=== PATIENT | male | born 1940 | race Caucasian/White ===

== ENCOUNTER 2017-02-23 10:01 | Inpatient (IN) ==
[2017-02-23] MEDS ORDERED: ALBUTEROL/IPRATROPIUM 3 ML NEB RESP TX PRN (11:21)
[2017-02-23] MEDS ORDERED: LACTULOSE 20 GM/30 ML UDCUP PO PRN (11:21)
--- NOTE | 2017-02-23 11:37 | Pulmonology History & Physical ---
History of Present Illness Chief complaint: hemoptysis acute RML pneumonia poss. LLL infiltrate vs L pleural effusion History of present illness: RADHA Villarreal acting as scribe for Dr. Sascha Carrillo. Mr. Tomas is a 76 year old /White male who was admitted today from the clinic for acute RML pneumonia, hemoptysis, possible LLL pneumonia vs L pleural effusion, increased edema, CKD, paroxysmal afib, and outpatient tx failure. He was seen today in the clinic along with his with complaints of productive cough and "cold" symptoms that have been present for a little over 1 week now, but patient states on Wednesday02/21/17 he began coughing up bright red blood. Due to his anticoagulation with Coumadin he went to see his primary care provider in [place], [place] yesterday and had his INR checked this was 2.2. They did not do a CXR at this time but he was placed on Doxycycline and given a ProAir inhaler. He has been coughing up yellow/green thick sputum for about 1 week now, Wednesday it was bright red, now it is more of an orange/old blood type color but it remains thick. He states he is able to cough it up easily but still feels like he is congested. Also has had increased shortness of breath and worsening wheezing especially at night. He was given a ProAir inhaler by his PCP yesterday but has not used this yet as he was waiting to ask if this was safe for use or not. Has had increased lower extremity edema for about 2 weeks now, he does have chronic kidney disease and is followed by an MD in [place] for this and his blood pressure. He has had low blood pressure of late which he states this has been since his hypertension MD placed him back on Cozaar 50mg daily because his "kidneys had gotten worse", so he stopped the Cozaar 3 days ago on his own. BP in the office today is still 98/62. He has Lasix on his home med list but he takes this on slight occasion but not frequently due to his kidneys. He has not checked his temperature at home but has noted chills. Due to the severity of his symptoms, past medical history, and failure of outpatient treatment by his PCP along with infiltrate on his CXR decision was made to admit to inpatient for further evaluation and treatment. ROS is otherwise noncontributory. He denies solid dysphagia, reflux, syncope, near syncope, cardiac angina, palpitations, or TIAs. ALLERGIES: NO KNOWN DRUG ALLERGIES Home Medications: Doxycycline 100mg capsule BID, ASA E.C 81mg daily, Ativan 1mg daily, Co-Q 10 daily, Imdur 120mg daily, Lasix 20mg daily PRN, Lipitor 80mg daily, Nitroglycerin sublingual 0.4mg as directed, Prilosec OTC 20mg BID, Toprol XL 50mg 2 tablets daily and 1.5 tablets at bedtime, Vitamin C 1,000mg BID , and Coumadin 4mg daily. Past Medical History: In January 2014 fell and fractured three ribs on his left side. Probable bronchiectasis with chronic sputum production. History of left total knee replacement. Cardiac pacemaker which was placed by Dr. Forbes in [place] originally, then in 2011 cardiac pacemaker placed by Dr. Villa in [place], [place]. Atrial fibrillation last episode was about 1 month ago, followed by Dr. Forbes in [place], [place] from cardiology standpoint. History of angioplasty and 4 cardiac stents. Hypertension followed by Dr. Novoa in [place], [place], hyperlipidemia, GERD with a small hiatal hernia. LOUISE followed by Dr. Gordillo. His primary care provider is Dr. Kole Farrell in [place], [place]. Previously followed by Dr. [facility] in [place], [place] but he has retired. Past Surgical History: LHC and pacemaker placements as above, left knee replacement, gastric sleeve surgery. Social History: . History of smoking 3 packs a day for 20 years but stopped smoking in the late 1960s. Family History: Positive for diabetes, heart disease, myocardial infarction, and sudden . [place] [facility] [place]. Heart size is top normal. Pulmonary arteries, hilum, and mediastinum are within normal limits, cardiac pacemaker and pacer wires are present. There is an infiltrate noted in the RML area with density appearing at the left costophrenic angle with some air space present could be acute infiltrate vs. pleural effusion. We will repeat his XR in the morning if unable to determine possible CT chest. Mild kyphosis of the dorsal spine. Labs have been reviewed CBC was done at [facility] WBC 6,200 with 50.9% segs and 33% lymphs, RBC 3.54 H&H 12.8/36.5 with Elevated indices at MCV 103.1 and MCH 36.2. Platelets 132,000 RDW normal at 14%. EKG is pending. Allergies Allergy/AdvReac Type Severity Reaction Status Date / Time tamsulosin [From Flomax] Allergy Intermediate Palpitation Verified 02/23/17 15: 46 s Exam (Pulmonay) H&P - Constitutional Vitals: Ht 68in wt. 227# see below for other vitals. Exam: Psych. Oriented x3. Pleasant mood, acute and chronically ill appearing. HEENT: Pupils, irises, sclera, conjunctiva, eyelids are normal. Face is symmetrical. Nares are normal with no evidence of epistaxis. NECK: Symmetrical, no masses, slightly kyphotic. Thyroid was not palpated. Lymphatic: No submandibular, cervical, or supraclavicular adenopathy. Chest: Chest is symmetrical and slightly kyphotic. Significant amount of coarse rales/rhonchi with loose large airway congestion noted anteriorly in the large airway/tracheal area there is also a faint high pitched stridor heard on forced expiration in the upper airway. Posteriorly there are expiratory coarse rales/ rhonchi throughout worse in the right basilar areas. No wheezes noted posteriorly. Heart: Regular rate and rhythm, grade I/ systolic ejection murmur and the LUSB without radiation. No gallops. Abdomen: Abdominal obesity is present, no tenderness, no appreciable organomegaly. /Rectal: deferred Musculoskeletal: Mild loss of curvature of the cervical, thoracic, and lumbar spine. Extremities: No clubbing. There is at least 1-2+ pitting edema bilaterally at the pretibial. At time of exam patient has on socks that have left an indented ring about midway between the knee and ankle. Above this there is at least 2-3+ pitting edema bilaterally extending from this point up to the tibial plateus bilaterally. There is no redness or calf pain. Arterial Exam: Carotids normal with good upstroke and no bruits. Upper extremities are normal. Lower extremity pulses could not be palpated due to edema. Venous exam: Venous exam of the neck and upper extremities is normal. Lower extremities show acute on chronic venous stasis changes. Skin: No cancerous or infectious lesions of the exposed examined skin. Neurological: Cranial nerves are intact. Long tract motor function is intact. Sensory exam was not done. The remainder of the physical exam is noncontributory. Impression: #1 Acute RML infiltrate despite outpatient treatment #2 Possible acute LLL infiltrate vs. small left pleural effusion, due to acute RML infiltrate and signs and symptoms we will treat this as an acute infiltrate until blood culture and sputum results are obtained. #3 Hemoptysis, patient also on predatory animal exterminator anticoagulation #4 Increased lower extremity edema with history of chronic kidney disease and CHF #5 Increase shortness of breath and wheezing #6 Anemia with increased indices, history of b12 deficiency #7 LOUISE #8 Atrial fibrillation #9 See past history. Plan: #1 Admit to inpatient for further evaluation and treatment #2 Blood cx x3, sputum for gram stain c&s, levaquin to be dosed by pharmacy, cleocin 300mg q6h, labs and radiology studies as ordered. #3 ID and continue home meds as ordered. #4 Inhalation treatment with duonebs, acapella, mucinex, and tessalon perles PRN for cough. #5 See orders.
[2017-02-23] MEDS: ALBUTEROL/IPRATROPIUM 3 ML NEB RESP TX SCH ×2 (14:53→19:38)
--- NOTE | 2017-02-23 15:06 | EKG Report ---
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
[2017-02-23] MEDS: LEVOFLOXACIN INJ 250 MG in PREMIX 1 EACH IV SCH (15:42)
[2017-02-23] MEDS ORDERED: BENZONATATE 100 MG CAPSULE PO PRN (16:05)
[2017-02-23 16:35] LABS: INR 2.3
[2017-02-23 16:42] LABS: PT Patient Result 25.9 SECS
[2017-02-23 16:58] LABS: Albumin 3.5 G/DL (3.4-5.0); Bilirubin,Total 0.6 MG/DL (0.2-1.0); Calcium 8.2 MG/DL (8.5-10.1); Magnesium 2.2 MG/DL (1.8-2.4); Osmolality,Calculated 301.3 MOS/KG (273-304); Potassium 4.3 MMOL/L (3.5-5.1); Thyroid Stimulating Hormone 1.26 uIU/ml (0.358-3.74); Total Protein 6.5 G/DL (6.4-8.3)
--- NOTE | 2017-02-23 17:09 | Ultrasound Report ---
Exam: Bilateral lower extremity venous Doppler ultrasound Comparison: 06/20/2008 Clinical history: Leg edema Technique: Duplex scan of the lower extremity veins using B-mode/grayscale scaled imaging and Doppler spectral analysis and color flow. Findings: Major venous structures of the lower extremities demonstrate a normal course and caliber. Normal color-flow study and spectral analysis. There is normal compression and augmentation of bilateral common femoral, superficial femoral and popliteal veins. The proximal bilateral greater saphenous veins appear to be patent. Impression: No evidence to suggest deep venous thrombosis within either lower extremity. Ultrasound images were captured and stored. PROCEDURE INTERPRETED AT [facility] DEPARTMENT OF RADIOLOGY Final Report Signed by: Dr. Connie Garcia
[2017-02-23 17:12] LABS: Folate > 24.0 NG/ML (5.4-24.0); Vitamin B12 839 PG/ML (211-911)
[2017-02-23] MEDS: CLINDAMYCIN INJ 300 MG in PREMIX 1 EACH IV SCH ×2 (17:43→21:17)
[2017-02-23 21:07] LABS: Apearance,Urine Slightly Hazy (Clear); Bacteria,Urine Occasional /HPF (Few); Bilirubin,Urine Negative (Negative); Blood, Urine Negative (Negative); Glucose,Urine (UA) Negative (Negative); Ketones,Urine Negative (Negative); Mucus,Urine Occasional /LPF (Occasional); Nitrite,Urine Negative (Negative); Protein,Urine 30 MG/DL; RBC,Urine <1 /HPF (0-4); Squamous Epithelial Cell,Urine Occasional /HPF (0-10); Urine Color Yellow (Yellow); Urine Specific Gravity 1.017 (1.001-1.035); Urine Urobilinogen < 2.0 EU/DL (0.2-1.0); WBC,Urine 2 /HPF (0-6)
[2017-02-24] MEDS: CLINDAMYCIN INJ 300 MG in PREMIX 1 EACH IV SCH ×4 (05:29→22:02)
[2017-02-24 05:49] LABS: Basophils % 0.8 % (0.0-0.8); Eosinophils # 0.3 10*3/uL (0.0-0.87); Eosinophils % 5.5 % (0.00-10.9); Hematocrit 34.6 VOL% (42.0-52.0); Hemoglobin 11.5 GM/DL (14.0-18.0); Immature Granulocytes % 0.2 %; Immature Granulocytes Absolute 0.01 #; Lymphocytes # 1.7 10*3/uL (1.4-4.0); Lymphocytes % 34.7 % (21.2-54.2); Mean Corpuscular HGB Conc 33.2 GM/DL (32-36); Mean Corpuscular Hemoglobin 34 PG (27-34); Mean Platelet Volume 12.4 FL (9.6-12.0); Monocytes # 0.5 10*3/uL (0.11-0.8); Monocytes % 9.4 % (1.7-12.7); Neutrophils # 2.4 10*3/uL (1.4-7.4); Neutrophils % 49.4 % (38.7-73.9); Platelet Count 116 T/CUMM (130-400); Red Blood Count 3.36 MC/CUMM (3.8-5.5); Red Cell Distribution Width 14.6 % (9.3-17.3); White Blood Count 4.9 T/CUMM (4-12)
[2017-02-24 06:01] LABS: INR 2.4
[2017-02-24 06:04] LABS: PT Patient Result 26.9 SECS
[2017-02-24 06:14] LABS: Magnesium 2.2 MG/DL (1.8-2.4); Osmolality,Calculated 297.4 MOS/KG (273-304)
[2017-02-24] MEDS: ALBUTEROL/IPRATROPIUM 3 ML NEB RESP TX SCH ×4 (07:07→20:34)
--- NOTE | 2017-02-24 07:43 | XRay Report ---
XR chest 2V Indication: Shortness of breath Comparison: 03 June 2013 Findings: The heart and mediastinum are normal in size and configuration. Pacemaker device is unchanged in position. The pulmonary vascularity is normal in caliber. Lung volumes are increased with prominent bronchial markings. No lung infiltrates, effusions, pneumothorax or other abnormality is demonstrated. Impression: Chronic lung changes. No acute process or significant change. PROCEDURE INTERPRETED AT [facility] DEPARTMENT OF RADIOLOGY Final Report Signed by: Dr. Manoj Phillips
[2017-02-24] MEDS: PANTOPRAZOLE 40 MG TABLET PO SCH (08:24)
[2017-02-24] MEDS: ISOSORBIDE MONONITRATE 30 MG TABLET PO SCH (10:53)
[2017-02-24] MEDS: POTASSIUM CHLORIDE 10 MEQ TABLET PO SCH (10:53)
[2017-02-24] MEDS: METOPROLOL SUCCINATE XL 50 MG TABLET PO SCH (10:53)
[2017-02-24] MEDS: ASPIRIN CHEW 81 MG TABLET PO SCH (10:53)
[2017-02-24] MEDS: FUROSEMIDE 20 MG/2 ML VIAL IV SCH ×2 (10:53→15:40)
--- NOTE | 2017-02-24 11:09 | Pulmonology Progress Note ---
Pulmonary - PN: Subj Interval history: RADHA Villarreal acting as scribe for Dr. Sascha Carrillo. Mr. Tomas is a 76 year old /White male who was admitted 02/23/17 from the clinic for acute RML pneumonia, hemoptysis, possible LLL pneumonia vs L pleural effusion, increased edema, CKD, paroxysmal afib, and outpatient tx failure. 02/24/17 he was seen today along with ÁNGELA Hobbs, the patient's and two sons were also in the room. Patient states that he continues to cough up sputum that is blood tinged but that he feels better this morning. His legs have gone down significantly in size since yesterday with elevation and compression hose. He has had further labs, imaging studies since admission these have been reviewed. Doppler venograms were negative for evidence of DVT. EKG was without acute changes for his baseline. CXR was repeated today which showed that this was more of a right lower lung infiltrate mostly posterior rather than right middle lung, also small amounts of fluid noted at both costophrenic angles along with a small infiltrate noted in the left lower lung. We discussed these findings with the patient and family and they verbalized understanding and that he would likely need fiberoptic bronchoscopy during this hospitalization to evaluate the cause of this hemoptysis further but we would wait until he is stable to do this. He had no complaints today. Medications have been reviewed. We have continued his home medications. Labs have been reviewed. 02/24/17 WBC 4,900 with 49.4% segs; H&H 11.5/34.6 with elevated MCV at 103; platelets 116,000; INR 2.4; Sodium 147, potassium 4.0; creatinine 1.2 BUN 31; calcium 8.0; AST 82 ALT 119 ALP 199; BNP 1063; b12 839; folate >24.0; Free T4 1.17 with TSH of 1.260. CXR has been reviewed 02/24/17 as above right lower lung infiltrate mostly posterior rather than right middle lung, also small amounts of fluid noted at both costophrenic angles along with a small infiltrate noted in the left lower lung. EKG has been reviewed as above. Exam (Progress Note) - Constitutional Vitals: Period Temp Pulse Resp BP Sys/Olivarez Pulse Ox Last 24 Hr 97.3 F-97.8 F 68-88 18-22 108-139/66-90 94-100 Exam: Psych. Oriented x3. Pleasant and cooperative patient. NECK: Symmetrical, no masses, slightly kyphotic. Thyroid was not palpated. Chest: Significant amount of coarse rales/rhonchi noted throughout on expiration most prominent in the large airways with loose large airway congestion. Heart: Regular rate and rhythm, grade I/ systolic ejection murmur and the LUSB without radiation. No gallops. Abdomen: Abdominal obesity is present, no tenderness, no appreciable organomegaly. Extremities: No clubbing or edema, BOUCHRA hose in place bilaterally. Neurological: Cranial nerves are intact. Long tract motor function is intact. Sensory exam was not done. The remainder of the physical exam is noncontributory. Plan: Obtain echocardiogram today for CHF elevated BNP, continue home meds with daily INR, add Lasix 20mg IVP BID with KCL 10meQ daily PO for diuresis monitor daily BMP due to CKD, add SoluMedrol 20mg IVP daily, obtain liver u/s for elevated liver function tests, plan for FOB when patient is stable to further evaluate hemoptysis. Continue current abx as ordered and inhalation therapy as ordered. Results - Labs CBC & BMP: 02/24/17 05:14 02/24/17 05:14 Lab Results: I have reviewed the past 24 hour labs
[2017-02-24] MEDS: LEVOFLOXACIN INJ 250 MG in PREMIX 1 EACH IV SCH (15:40)
--- NOTE | 2017-02-24 15:48 | Ultrasound Report ---
Exam: US liver Date: 02/24/2017 11:15 AM Comparison: None Indication: Elevated liver function tests Technique:[Multiple transabdominal real-time scans were obtained of the right upper quadrant.] Color-flow scans obtained. Ultrasound images were captured and stored. Findings: No definite gallbladder pathology identified. CBD is normal in size measuring 4 mm. The liver is normal in size with no masses. The right kidney, pancreas, and abdominal aorta, and aortic bifurcation are obscured by bowel gas. Color flow documented in the IVC. Small right pleural effusion. Impression: No definite gallbladder pathology identified. Bowel gas limits evaluation of the right upper quadrant as above noted. Small right pleural effusion. PROCEDURE INTERPRETED AT [facility] DEPARTMENT OF RADIOLOGY Final Report Signed by: Dr. Connie Garcia
[2017-02-24] MEDS: METOPROLOL SUCCINATE XL 25 MG TABLET PO SCH (18:10)
[2017-02-24] MEDS: ATORVASTATIN 40 MG TABLET PO SCH (18:10)
[2017-02-24] MEDS: WARFARIN 4 MG TABLET PO SCH (18:10)
[2017-02-24] MEDS: LORazepam 1 MG TABLET PO SCH (18:11)
--- NOTE | 2017-02-24 18:28 | ECHO Report ---
Elgin Tomas Exam Date: 02/24/2017 11:06 Referring Physician: Technologist: Susan Mackenzie RDCS Age: 76 Ht (in): 68 Wt (lb): 224 Gender: M Exam Location: [facility] Echo Indications: Acute RML pneumonia, Hemoptysis, Edema, unspecified, Chronic kidney disease, unspecified, Presence of cardiac pacemaker, Atrial fibrillation, LOUISE BP: 116 / 79 HR: 78 Rhythm: Atrial fibrillation/pacemaker Technical Quality: IMPRESSIONS Technically adequate study 3+ left atrial enlargement; probably 2+ right ventricular enlargement Borderline normal LV systolic function with ejection fraction estimated at 50 to 55%, without segmental wall motion abnormality Aortic sclerosis without stenosis Mitral annular calcification 1+ mitral and tricuspid regurgitation 1-2+ TR with RV systolic pressure estimated to be 58 mmHg plus RAP (suggests at least moderate pulmonary hypertension) Probable pacing wire and right heart noted MEASUREMENTS (Male / Female) Normal Values 2D ECHO LV Diastolic Diameter PLAX 5.7 cm 4.2 - 5.9 / 3.9 - 5.3 cm LV Systolic Diameter PLAX 3.7 cm LV Fractional Shortening PLAX 34.4 % IVS Diastolic Thickness 0.9 cm 0.6 - 1.0 / 0.6 - 0.9 cm LVPW Diastolic Thickness 0.9 cm 0.6 - 1.0 / 0.6 - 0.9 cm RV Internal Dim ED PLAX 3.9 cm Aortic Root Diameter 3.8 cm LA Systolic Diameter LX 5.5 cm 3.0 - 4.0 / 2.7 - 3.8 cm DOPPLER TR Peak Velocity 381.0 cm/s TR Peak Gradient 58.1 mmHg FINDINGS Left Ventricle Normal left ventricular cavity size. Normal left ventricular wall thickness. Left ventricular ejection fraction is estimated at 50 %. Right Ventricle Normal right ventricular size. Catheter/pacemaker wire visualized in the right ventricle. Right Atrium The right atrium is mildly enlarged. Catheter/pacemaker wire in the right atrial cavity. Left Atrium Moderately increased left atrial size. Mitral Valve Mild mitral annular and leaflet calcification with mild mitral regurgitation. Aortic Valve Aortic valve sclerosis without stenosis or regurgitation. Tricuspid Valve Morphologically normal tricuspid valve. Mild tricuspid valve regurgitation. Tricuspid regurgitation velocities suggest a PAP of 68 mmHg. Pulmonic Valve Morphologically normal pulmonic valve. Mild pulmonary valve regurgitation. Pericardium Normal pericardium without effusion. Aorta Normal ascending aorta dimension. Klaus Azul (Electronically Signed) Final Date: 24 February 2017 18:27
[2017-02-25] MEDS: CLINDAMYCIN INJ 300 MG in PREMIX 1 EACH IV SCH ×4 (04:23→21:02)
[2017-02-25 06:01] LABS: Basophils % 0.9 % (0.0-0.8); Eosinophils # 0.4 10*3/uL (0.0-0.87); Eosinophils % 8.3 % (0.00-10.9); Hematocrit 34.5 VOL% (42.0-52.0); Hemoglobin 11.5 GM/DL (14.0-18.0); Immature Granulocytes % 0.2 %; Immature Granulocytes Absolute 0.01 #; Lymphocytes # 1.4 10*3/uL (1.4-4.0); Lymphocytes % 31.1 % (21.2-54.2); Mean Corpuscular HGB Conc 33.3 GM/DL (32-36); Mean Corpuscular Hemoglobin 35 PG (27-34); Mean Corpuscular Volume 103.6 FL (87-102); Mean Platelet Volume 12.1 FL (9.6-12.0); Monocytes # 0.6 10*3/uL (0.11-0.8); Monocytes % 12.1 % (1.7-12.7); Neutrophils # 2.2 10*3/uL (1.4-7.4); Neutrophils % 47.4 % (38.7-73.9); Platelet Count 120 T/CUMM (130-400); Red Blood Count 3.33 MC/CUMM (3.8-5.5); Red Cell Distribution Width 14.3 % (9.3-17.3); White Blood Count 4.6 T/CUMM (4-12)
[2017-02-25 06:05] LABS: INR 2.2
[2017-02-25 06:11] LABS: PT Patient Result 24.8 SECS
[2017-02-25 06:14] LABS: Calcium 8.6 MG/DL (8.5-10.1); Magnesium 2.2 MG/DL (1.8-2.4); Osmolality,Calculated 295.6 MOS/KG (273-304); Potassium 3.7 MMOL/L (3.5-5.1)
[2017-02-25] MEDS: ALBUTEROL/IPRATROPIUM 3 ML NEB RESP TX SCH ×4 (06:54→19:39)
[2017-02-25] MEDS: PANTOPRAZOLE 40 MG TABLET PO SCH (08:03)
[2017-02-25] MEDS: METOPROLOL SUCCINATE XL 50 MG TABLET PO SCH (08:03)
[2017-02-25] MEDS: ASPIRIN CHEW 81 MG TABLET PO SCH (08:03)
[2017-02-25] MEDS: methylPREDNISolone SOD SUC 40 MG/1 ML VIAL IV SCH (08:03)
[2017-02-25] MEDS: POTASSIUM CHLORIDE 10 MEQ TABLET PO SCH (08:03)
[2017-02-25] MEDS: ISOSORBIDE MONONITRATE 30 MG TABLET PO SCH (08:03)
[2017-02-25] MEDS: FUROSEMIDE 20 MG/2 ML VIAL IV SCH ×2 (08:03→17:00)
--- NOTE | 2017-02-25 08:40 | XRay Report ---
XR chest 2V Indication: Pneumonia, congestive heart failure Comparison: 24 February 2017 Findings: The heart and mediastinum are normal in size and configuration. Pacemaker device is unchanged in position. The pulmonary vascularity is normal in caliber. No lung infiltrates, effusions, pneumothorax or other abnormality is demonstrated. Impression: No acute cardiopulmonary disease. PROCEDURE INTERPRETED AT [facility] DEPARTMENT OF RADIOLOGY Final Report Signed by: Dr. Manoj Phillips
--- NOTE | 2017-02-25 11:26 | Pulmonology Progress Note ---
Pulmonary - PN: Subj Interval history: Dirk Nur, ANP-BC, GNP-BC, acting as scribe for Dr. Sascha Carrillo Mr. Tomas is a 76 year old /White male who was admitted 02/23/17 from [facility] for acute RML pneumonia, hemoptysis, possible LLL pneumonia vs L pleural effusion, increased edema, CKD, paroxysmal afib, and outpatient tx failure. 02/24/17 he was seen today along with ÁNGELA Hobbs, the patient's and two sons were also in the room. Patient states that he continues to cough up sputum that is blood tinged but that he feels better this morning. His legs have gone down significantly in size since yesterday with elevation and compression hose. He has had further labs, imaging studies since admission these have been reviewed. Doppler venograms were negative for evidence of DVT. EKG was without acute changes for his baseline. CXR was repeated today which showed that this was more of a right lower lung infiltrate mostly posterior rather than right middle lung, also small amounts of fluid noted at both costophrenic angles along with a small infiltrate noted in the left lower lung. We discussed these findings with the patient and family and they verbalized understanding and that he would likely need fiberoptic bronchoscopy during this hospitalization to evaluate the cause of this hemoptysis further but we would wait until he is stable to do this. He had no complaints today. 02/25/17. The patient was seen today along with his . His breathing has improved. He continues to have some hemoptysis. He will need FOB at some point, but he is not ready from a medical standpoint yet. Medications have been reviewed. We made no changes today. Labs have been reviewed. Exam (Progress Note) - Constitutional Vitals: Period Temp Pulse Resp BP Sys/Olivarez Pulse Ox Last 24 Hr 97.3 F-98.6 F 79-96 18-25 103-140/66-80 89-99 Exam: Chest with prolonged expiration, but less wheeze Heart no gallop Abd is nontender and nondistended; BS positive x 4 Ext with nothing to suggest acute DVT Psych oriented x 3 Neuro long tract motor function is intact Plan: Continue present treatments and medications. See orders. Results - Labs CBC & BMP: 02/26/17 04:27 02/26/17 04:27
[2017-02-25] MEDS: LEVOFLOXACIN INJ 250 MG in PREMIX 1 EACH IV SCH (14:45)
[2017-02-25] MEDS: amLODIPine 5 MG TABLET PO SCH (14:45)
[2017-02-25] MEDS: WARFARIN 4 MG TABLET PO SCH (17:00)
[2017-02-25] MEDS: METOPROLOL SUCCINATE XL 25 MG TABLET PO SCH (18:55)
[2017-02-25] MEDS: LORazepam 1 MG TABLET PO SCH (18:55)
[2017-02-25] MEDS: ATORVASTATIN 40 MG TABLET PO SCH (18:55)
[2017-02-26] MEDS: CLINDAMYCIN INJ 300 MG in PREMIX 1 EACH IV SCH ×4 (04:03→21:03)
[2017-02-26] MEDS: ALBUTEROL/IPRATROPIUM 3 ML NEB RESP TX SCH ×4 (07:05→20:52)
[2017-02-26 07:14] LABS: Basophils % 0.3 % (0.0-0.8); Eosinophils # 0.1 10*3/uL (0.0-0.87); Eosinophils % 1.3 % (0.00-10.9); Hematocrit 35.2 VOL% (42.0-52.0); Hemoglobin 11.6 GM/DL (14.0-18.0); Immature Granulocytes Absolute 0.06 #; Lymphocytes # 1.6 10*3/uL (1.4-4.0); Lymphocytes % 26.2 % (21.2-54.2); Mean Corpuscular Hemoglobin 34 PG (27-34); Mean Corpuscular Volume 103.5 FL (87-102); Mean Platelet Volume 12.3 FL (9.6-12.0); Monocytes # 0.6 10*3/uL (0.11-0.8); Monocytes % 10.1 % (1.7-12.7); Neutrophils # 3.7 10*3/uL (1.4-7.4); Neutrophils % 61.1 % (38.7-73.9); Platelet Count 138 T/CUMM (130-400); Red Cell Distribution Width 14.6 % (9.3-17.3); White Blood Count 6.1 T/CUMM (4-12)
[2017-02-26 07:23] LABS: INR 2.5; PT Patient Result 28.1 SECS
[2017-02-26 07:58] LABS: Calcium 8.1 MG/DL (8.5-10.1); Magnesium 2.2 MG/DL (1.8-2.4); Osmolality,Calculated 297.7 MOS/KG (273-304); Potassium 4.2 MMOL/L (3.5-5.1)
[2017-02-26] MEDS: amLODIPine 5 MG TABLET PO SCH (08:35)
[2017-02-26] MEDS: FUROSEMIDE 20 MG/2 ML VIAL IV SCH (08:36)
[2017-02-26] MEDS: PANTOPRAZOLE 40 MG TABLET PO SCH (08:36)
[2017-02-26] MEDS: ASPIRIN CHEW 81 MG TABLET PO SCH (08:36)
[2017-02-26] MEDS: ISOSORBIDE MONONITRATE 30 MG TABLET PO SCH (08:36)
[2017-02-26] MEDS: POTASSIUM CHLORIDE 10 MEQ TABLET PO SCH (08:36)
[2017-02-26] MEDS: METOPROLOL SUCCINATE XL 50 MG TABLET PO SCH (08:36)
[2017-02-26] MEDS: methylPREDNISolone SOD SUC 40 MG/1 ML VIAL IV SCH (08:36)
--- NOTE | 2017-02-26 11:50 | Pulmonology Progress Note ---
Pulmonary - PN: Subj Interval history: Dirk Nur, ANP-BC, GNP-BC, acting as scribe for Dr. Sascha Carrillo Mr. Tomas is a 76 year old /White male who was admitted 02/23/17 from [facility] for acute RML pneumonia, hemoptysis, possible LLL pneumonia vs L pleural effusion, increased edema, CKD, paroxysmal afib, and outpatient tx failure. 02/24/17 he was seen today along with ÁNGELA Hobbs, the patient's and two sons were also in the room. Patient states that he continues to cough up sputum that is blood tinged but that he feels better this morning. His legs have gone down significantly in size since yesterday with elevation and compression hose. He has had further labs, imaging studies since admission these have been reviewed. Doppler venograms were negative for evidence of DVT. EKG was without acute changes for his baseline. CXR was repeated today which showed that this was more of a right lower lung infiltrate mostly posterior rather than right middle lung, also small amounts of fluid noted at both costophrenic angles along with a small infiltrate noted in the left lower lung. We discussed these findings with the patient and family and they verbalized understanding and that he would likely need fiberoptic bronchoscopy during this hospitalization to evaluate the cause of this hemoptysis further but we would wait until he is stable to do this. He had no complaints today. 02/25/17. The patient was seen today along with his . His breathing has improved. He continues to have some hemoptysis. He will need FOB at some point, but he is not ready from a medical standpoint yet. 02/26/17. The patient was seen today along with his and Adriana Mei RN. He is laying flat in bed and breathing comfortably. Upon questioning, he continues to have hemoptysis. His INR today is 2.5. In anticipation of proceeding with FOB on Wednesday, we will hold his Coumadin. On Wednesday we will give a one time dose of Lovenox. FOB was discussed with the patient and his and they agree to proceed. Pre-op orders have been placed in the EMR. His creatinine has increased to 1.6. His CXR shows no heart failure. so we will stop the Lasix. Medications have been reviewed. Labs have been reviewed. Exam (Progress Note) - Constitutional Vitals: Period Temp Pulse Resp BP Sys/Olivarez Pulse Ox Last 24 Hr 97.4 F-98.0 F 60-110 16-20 94-119/49-71 91-100 Exam: Chest with prolonged expiration, but no appreciable wheeze Heart no gallop Abd is nontender and nondistended; BS positive x 4 Ext with nothing to suggest acute DVT Psych oriented x 3 Neuro long tract motor function is intact Plan: Stop Coumadin. Daily INR. Lovenox 30mg subQ x one dose on Wednesday. FOB 03/[address] Carirllo. Pre-op orders done. Repeat CXR on Wednesday. Stop Lasix. Daily BMP. See orders. Results - Labs CBC & BMP: 02/26/17 04:27 02/26/17 04:27
[2017-02-26] MEDS: LEVOFLOXACIN INJ 250 MG in PREMIX 1 EACH IV SCH (14:58)
[2017-02-26] MEDS: ATORVASTATIN 40 MG TABLET PO SCH (17:50)
[2017-02-26] MEDS: LORazepam 1 MG TABLET PO SCH (17:50)
[2017-02-26] MEDS: METOPROLOL SUCCINATE XL 25 MG TABLET PO SCH (17:50)
[2017-02-27] MEDS: CLINDAMYCIN INJ 300 MG in PREMIX 1 EACH IV SCH ×4 (03:50→21:44)
[2017-02-27 05:30] LABS: PT Patient Result 34.1 SECS
[2017-02-27 05:46] LABS: Calcium 8.6 MG/DL (8.5-10.1); Magnesium 2.2 MG/DL (1.8-2.4); Osmolality,Calculated 296.7 MOS/KG (273-304); Potassium 4.1 MMOL/L (3.5-5.1)
[2017-02-27] MEDS: ALBUTEROL/IPRATROPIUM 3 ML NEB RESP TX SCH ×4 (07:25→20:26)
[2017-02-27] MEDS: amLODIPine 5 MG TABLET PO SCH (08:21)
[2017-02-27] MEDS: ASPIRIN CHEW 81 MG TABLET PO SCH (08:21)
[2017-02-27] MEDS: PANTOPRAZOLE 40 MG TABLET PO SCH (08:21)
[2017-02-27] MEDS: POTASSIUM CHLORIDE 10 MEQ TABLET PO SCH (08:21)
[2017-02-27] MEDS: methylPREDNISolone SOD SUC 40 MG/1 ML VIAL IV SCH (08:22)
[2017-02-27] MEDS: ISOSORBIDE MONONITRATE 30 MG TABLET PO SCH (08:22)
[2017-02-27] MEDS: METOPROLOL SUCCINATE XL 50 MG TABLET PO SCH (08:23)
[2017-02-27] MEDS: LEVOFLOXACIN INJ 250 MG in PREMIX 1 EACH IV SCH (15:59)
[2017-02-27] MEDS: ATORVASTATIN 40 MG TABLET PO SCH (18:21)
[2017-02-27] MEDS: LORazepam 1 MG TABLET PO SCH (18:21)
[2017-02-27] MEDS: METOPROLOL SUCCINATE XL 25 MG TABLET PO SCH (18:21)
--- NOTE | 2017-02-27 19:51 | Pulmonology Progress Note ---
Pulmonary - PN: Subj Interval history: 76-year-old male admitted for right middle lobe pneumonia. Patient had no acute events overnight and continues to do well. This a.m. patient states he is back to his baseline breathing status. Bronchoscopy is planned for Wednesday after holding Coumadin over the weekend. Exam (Progress Note) - Constitutional Vitals: Period Temp Pulse Resp BP Sys/Olivarez Pulse Ox Last 24 Hr 97.3 F-97.7 F 59-94 18-61 100-129/58-77 95-100 General appearance: normal weight - Head Head exam: Present: normal inspection - Eye Eye exam: Present: EOMI Pupils: Present: JACKSON - Neck Neck exam: Present: normal inspection - Respiratory Respiratory exam: Present: clear to auscultation bilaterally. Absent: rales, rhonchi, wheezes - Cardiovascular Cardiovascular exam: Present: irregular rhythm - GI/Abdominal GI/Abdominal exam: Present: normal bowel sounds, soft. Absent: tenderness - Extremities Exam Extremities exam: Present: normal inspection. Absent: edema - Neurological Exam Neurological exam: Present: alert, oriented X3, CN II-XII intact. Absent: motor sensory deficit - Psychiatric Psychiatric exam: Present: normal affect - Skin Skin exam: Present: warm, dry Results - Labs CBC & BMP: 02/26/17 04:27 02/27/17 04:44 Assessment and Plan (1) Pneumonia Status: Acute Assessment and plan: Clinically improved with antibiotic. Continue current therapy. Bronchoscopy planned for Wednesday. Current Visit: Yes Qualifiers: Pneumonia type: due to unspecified organism Laterality: right Lung location: middle lobe of lung Qualified Code(s): J18.1 - Lobar pneumonia, unspecified organism (2) Atrial fibrillation Status: Chronic Assessment and plan: Currently rate controlled. Holding anticoagulation for bronchoscopy on Wednesday. Current Visit: Yes (3) Chronic kidney disease Status: Chronic Assessment and plan: Creatinine improved this morning with stopping Lasix. We will continue to hold Lasix and monitor BMP. Current Visit: Yes
[2017-02-28] MEDS: CLINDAMYCIN INJ 300 MG in PREMIX 1 EACH IV SCH ×4 (04:57→21:28)
[2017-02-28 05:59] LABS: Basophils % 0.5 % (0.0-0.8); Eosinophils # 0.1 10*3/uL (0.0-0.87); Eosinophils % 2.6 % (0.00-10.9); Hematocrit 34.8 VOL% (42.0-52.0); Hemoglobin 11.8 GM/DL (14.0-18.0); Immature Granulocytes % 0.2 %; Immature Granulocytes Absolute 0.01 #; Lymphocytes # 1.9 10*3/uL (1.4-4.0); Lymphocytes % 34.9 % (21.2-54.2); Mean Corpuscular HGB Conc 33.9 GM/DL (32-36); Mean Corpuscular Hemoglobin 35 PG (27-34); Mean Corpuscular Volume 102.1 FL (87-102); Mean Platelet Volume 11.4 FL (9.6-12.0); Monocytes # 0.5 10*3/uL (0.11-0.8); Monocytes % 8.4 % (1.7-12.7); Neutrophils # 2.9 10*3/uL (1.4-7.4); Neutrophils % 53.4 % (38.7-73.9); Platelet Count 150 T/CUMM (130-400); Red Blood Count 3.41 MC/CUMM (3.8-5.5); Red Cell Distribution Width 14.6 % (9.3-17.3); White Blood Count 5.5 T/CUMM (4-12)
[2017-02-28 06:36] LABS: Calcium 8.1 MG/DL (8.5-10.1); Magnesium 2.1 MG/DL (1.8-2.4); Osmolality,Calculated 297.6 MOS/KG (273-304)
[2017-02-28] MEDS: ALBUTEROL/IPRATROPIUM 3 ML NEB RESP TX SCH ×4 (07:30→19:49)
[2017-02-28 07:46] LABS: INR 2.3
[2017-02-28 07:52] LABS: PT Patient Result 25.5 SECS
[2017-02-28] MEDS: ASPIRIN CHEW 81 MG TABLET PO SCH (08:22)
[2017-02-28] MEDS: METOPROLOL SUCCINATE XL 50 MG TABLET PO SCH (08:22)
[2017-02-28] MEDS: PANTOPRAZOLE 40 MG TABLET PO SCH (08:23)
[2017-02-28] MEDS: ISOSORBIDE MONONITRATE 30 MG TABLET PO SCH (08:23)
[2017-02-28] MEDS: methylPREDNISolone SOD SUC 40 MG/1 ML VIAL IV SCH (08:23)
[2017-02-28] MEDS: amLODIPine 5 MG TABLET PO SCH (08:23)
[2017-02-28] MEDS: POTASSIUM CHLORIDE 10 MEQ TABLET PO SCH (08:23)
[2017-02-28] MEDS ORDERED: ENOXAPARIN 30 MG/0.3 ML SYRINGE SUBCUT ONE (09:00)
[2017-02-28] MEDS: LEVOFLOXACIN INJ 250 MG in PREMIX 1 EACH IV SCH (15:06)
--- NOTE | 2017-02-28 15:58 | Pulmonology Progress Note ---
Pulmonary - PN: Subj Interval history: 76-year-old male admitted for right middle lobe pneumonia. Patient had no acute events overnight and continues to do well. Patient had no acute events overnight and is aware of bronchoscopy scheduled for tomorrow. He will be n.p.o. after midnight. Coumadin has been held and INR this morning is 2.3. Exam (Progress Note) - Constitutional Vitals: Period Temp Pulse Resp BP Sys/Olivarez Pulse Ox Last 24 Hr 97.0 F-98.1 F 59-91 16-20 95-114/52-75 92-100 General appearance: normal weight - Head Head exam: Present: normal inspection - Eye Eye exam: Present: EOMI Pupils: Present: JACKSON - Neck Neck exam: Present: normal inspection - Respiratory Respiratory exam: Present: clear to auscultation bilaterally - Cardiovascular Cardiovascular exam: Present: irregular rhythm. Absent: JVD - GI/Abdominal GI/Abdominal exam: Present: normal bowel sounds, soft - Extremities Exam Extremities exam: Present: normal inspection - Neurological Exam Neurological exam: Present: alert, oriented X3, CN II-XII intact - Psychiatric Psychiatric exam: Present: normal affect - Skin Skin exam: Present: warm, dry Results - Labs CBC & BMP: 02/28/17 05:20 02/28/17 05:26 Assessment and Plan (1) Pneumonia Status: Acute Assessment and plan: Clinically improved with antibiotics. Continue current therapy. Bronchoscopy planned for tomorrow. Patient is n.p.o. after midnight. Current Visit: Yes Qualifiers: Pneumonia type: due to unspecified organism Laterality: right Lung location: middle lobe of lung Qualified Code(s): J18.1 - Lobar pneumonia, unspecified organism (2) Atrial fibrillation Status: Chronic Assessment and plan: Currently rate controlled. Holding anticoagulation for bronchoscopy tomorrow. Current Visit: Yes (3) Chronic kidney disease Status: Chronic Assessment and plan: Creatinine back to baseline with holding Lasix. We will continue to hold Lasix while patient is n.p.o. for bronchoscopy tomorrow. Current Visit: Yes
[2017-02-28] MEDS: LORazepam 1 MG TABLET PO SCH ×2 (18:28→21:27)
[2017-02-28] MEDS: METOPROLOL SUCCINATE XL 25 MG TABLET PO SCH ×2 (18:28→18:42)
[2017-02-28] MEDS: ATORVASTATIN 40 MG TABLET PO SCH (18:28)
[2017-03-01] MEDS: CLINDAMYCIN INJ 300 MG in PREMIX 1 EACH IV SCH ×4 (04:09→21:13)
[2017-03-01 06:28] LABS: Basophils % 0.6 % (0.0-0.8); Eosinophils # 0.1 10*3/uL (0.0-0.87); Eosinophils % 2.4 % (0.00-10.9); Hematocrit 35.9 VOL% (42.0-52.0); Lymphocytes % 42.2 % (21.2-54.2); Mean Corpuscular HGB Conc 33.4 GM/DL (32-36); Mean Corpuscular Hemoglobin 34 PG (27-34); Mean Corpuscular Volume 102.6 FL (87-102); Mean Platelet Volume 11.1 FL (9.6-12.0); Monocytes # 0.4 10*3/uL (0.11-0.8); Monocytes % 9.2 % (1.7-12.7); Neutrophils # 2.1 10*3/uL (1.4-7.4); Neutrophils % 45.6 % (38.7-73.9); Platelet Count 145 T/CUMM (130-400); Red Cell Distribution Width 14.6 % (9.3-17.3); White Blood Count 4.7 T/CUMM (4-12)
[2017-03-01] MEDS ORDERED: MEPERIDINE 50 MG/1 ML VIAL IM ONE (06:30)
[2017-03-01] MEDS ORDERED: BENZONATATE 100 MG CAPSULE PO ONE (06:30)
[2017-03-01] MEDS ORDERED: diphenhydrAMINE 50 MG/1 ML VIAL IM ONE (06:30)
[2017-03-01 06:37] LABS: INR 1.7; PT Patient Result 18.2 SECS; Partial Thromboplastin Time 30.4 SECS (0-40)
[2017-03-01] MEDS: ALBUTEROL/IPRATROPIUM 3 ML NEB RESP TX SCH ×4 (06:52→19:50)
[2017-03-01 06:58] LABS: Calcium 7.9 MG/DL (8.5-10.1); Magnesium 2.3 MG/DL (1.8-2.4); Osmolality,Calculated 293.7 MOS/KG (273-304); Potassium 3.9 MMOL/L (3.5-5.1)
[2017-03-01] MEDS ORDERED: LIDOCAINE 2% VISCOUS 100 ML BOTTLE SWISH/SPIT ONE (07:00)
[2017-03-01] MEDS ORDERED: LIDOCAINE 4% TOP SOLN 50 ML BOTTLE RESP TX ONE (07:00)
[2017-03-01] MEDS ORDERED: LIDOCAINE 1% 20 ML VIAL MISC INJ ONE (07:00)
[2017-03-01] MEDS ORDERED: MIDAZOLAM 2 MG/2 ML VIAL ONE (07:32)
--- NOTE | 2017-03-01 08:10 | XRay Report ---
Exam: Chest 2 views Date: March 01, 2017 at 7:52 AM Comparison: Chest 2 views February 25, 2017 Reason: Hemoptysis, congestive heart failure Findings: There is borderline cardiomegaly and a cardiac pacing device. There is also minimal atelectasis or scarring at both lung bases. No pneumothorax or pleural effusion is identified. Degenerative change is seen at the thoracic spine, but no acute osseous process is identified. Impression: 1. Borderline cardiomegaly. 2. Minimal atelectasis or scarring at the lung bases. PROCEDURE INTERPRETED AT [facility] DEPARTMENT OF RADIOLOGY Final Report Signed by: Dr. Frederick Lai
[2017-03-01] MEDS: methylPREDNISolone SOD SUC 40 MG/1 ML VIAL IV SCH (09:17)
--- NOTE | 2017-03-01 10:13 | Event Note ---
In hospital diagnostic and therapeutic fiberoptic bronchoscopy with lavage of the right lower lung and the left lower lung. Specimens were sent for cytology , Gram stain, bacterial cultures, AFB stains and culture, fungal stains and culture. This is a 76-year-old white male with a cough productive of blood. He is been on anticoagulation. For the past 2 days she has had no more hemoptysis. He also has sputum and claims it is hard to mobilize this. He has had bronchitis with bronchospasm and his cough is not been as effective as I would like. He has a slightly large inferior right hilum on chest x-ray. He has had a significant past history of tobacco abuse. For all these reasons she is evaluated with fiberoptic bronchoscopy. The vocal cords were normal. The trachea was normal. The jacquelin was sharp. The left mainstem bronchus contained a good bit of secretions. There were only a few secretions in the left upper lung. There were moderate amount of secretions in the left lower lung and there was erosive friable bronchitis and to the subsegments. See photographs. Left lower lung was lavaged until clear. These specimens were sent for the studies mentioned above. I did not see any endobronchial lesions that look like cancer. The right mainstem bronchus contained a lot of secretions. These were thick and tenacious. They extended slightly into the right upper lung. There were a lot of retained secretions in the right middle lung and in the right lower lung. There was several scattered areas of erosive friable bronchitis in the right lower lung. See photographs. The right middle lung and the right lower lung were low watched until clear. These specimens were sent for the studies mentioned above. There was no endobronchial evidence of cancer. The patient tolerated procedure well there were no complications. Findings were discussed with the patient and his . Photographs were taken of the right lower lung and the left lower lung. Impression. 1. COPD with bronchitis and bronchospastic disease 2. Cough. Less than optimally effective. 3. Retained secretions 4. Right lower lung and left lower lung erosive friable bronchitis. This appears to be secondary to infection. 5. Hemoptysis secondary to #4 6. Chronic anticoagulation. INR was 1.7 at the time of today's procedure. 7. 77-[id number]-auny history of smoking. Stop smoking in the 1960s. Plan. 1. Follow-up chest x-ray 2. Check bronchoscopy specimens
--- NOTE | 2017-03-01 10:14 | Pulmonology Progress Note ---
Pulmonary - PN: Subj Interval history: Mr. Tomas is a 76 year old /White male who was admitted 02/23/17 [place] [facility] [place] for acute RML pneumonia, hemoptysis, possible LLL pneumonia vs L pleural effusion, increased edema, CKD, paroxysmal afib, and outpatient tx failure. 02/24/17 he was seen today along with ÁNGELA Hobbs, the patient's and two sons were also in the room. Patient states that he continues to cough up sputum that is blood tinged but that he feels better this morning. His legs have gone down significantly in size since yesterday with elevation and compression hose. He has had further labs, imaging studies since admission these have been reviewed. Doppler venograms were negative for evidence of DVT. EKG was without acute changes for his baseline. CXR was repeated today which showed that this was more of a right lower lung infiltrate mostly posterior rather than right middle lung, also small amounts of fluid noted at both costophrenic angles along with a small infiltrate noted in the left lower lung. We discussed these findings with the patient and family and they verbalized understanding and that he would likely need fiberoptic bronchoscopy during this hospitalization to evaluate the cause of this hemoptysis further but we would wait until he is stable to do this. He had no complaints today. 02/25/17. The patient was seen today along with his . His breathing has improved. He continues to have some hemoptysis. He will need FOB at some point, but he is not ready from a medical standpoint yet. 02/26/17. The patient was seen today along with his and Adriana Mei RN. He is laying flat in bed and breathing comfortably. Upon questioning, he continues to have hemoptysis. His INR today is 2.5. In anticipation of proceeding with FOB on Wednesday, we will hold his Coumadin. On Wednesday we will give a one time dose of Lovenox. FOB was discussed with the patient and his and they agree to proceed. Pre-op orders have been placed in the EMR. His creatinine has increased to 1.6. His CXR shows no heart failure. so we will stop the Lasix. 03/01/2017. Earlier this morning the patient had a fiberoptic bronchoscopy. He had bibasal erosive friable bronchitis. I suspect this is the source of his bleeding although he had no active bleeding today. He tolerated procedure well and I have discussed the findings with his . See report for further detail. INR is down to 1.7. Will cover the patient another day with Lovenox and I have restarted his Coumadin at previous dose. I have asked him to be up and about this afternoon once his anesthesia wears off if he does well from a pulmonary standpoint we can consider discharge tomorrow. Lab is reviewed and looks good. Medicines have been reviewed no changes have been made. Physical exam. Vital signs see below Psychiatric. Oriented 3 Neurologic. Cranial nerves are intact. Long track motor functions intact. Sensory exam was not done. Gait is normal. Neck. Symmetrical. No masses. No meningismus. Lymphatics. No submandibular cervical supraclavicular or epitrochlear adenopathy Chest. Mild large airway congestion. Expiration is mildly prolonged. Heart. No gallop. Abdomen. Nontender. Positive bowel sounds. Extremities. No clubbing. No edema. No evidence of deep venous thrombophlebitis. Skin. No cancerous infectious lesions of the face or hands. No other areas were evaluated. The remainder the exam is noncontributory. Plan. 1. Increased activity. 2. Check bronchoscopy specimens 3. Follow-up chest x-ray 4. If the patient does well he is for possible discharge on 03/02/2017 Exam (Progress Note) - Constitutional Vitals: Period Temp Pulse Resp BP Sys/Olivarez Pulse Ox Last 24 Hr 97.3 F-98.1 F 60-68 12-20 95-149/52-86 96-100 Results - Labs CBC & BMP: 03/01/17 06:16 03/01/17 06:16
[2017-03-01] MEDS ORDERED: ENOXAPARIN 30 MG/0.3 ML SYRINGE SUBCUT ONE (10:16)
[2017-03-01] MEDS: POTASSIUM CHLORIDE 10 MEQ TABLET PO SCH (10:35)
[2017-03-01] MEDS: ASPIRIN CHEW 81 MG TABLET PO SCH (10:35)
[2017-03-01] MEDS: ISOSORBIDE MONONITRATE 30 MG TABLET PO SCH (10:35)
[2017-03-01] MEDS: PANTOPRAZOLE 40 MG TABLET PO SCH (10:35)
[2017-03-01] MEDS: amLODIPine 5 MG TABLET PO SCH (10:35)
[2017-03-01] MEDS: METOPROLOL SUCCINATE XL 50 MG TABLET PO SCH (10:38)
[2017-03-01] MEDS: LEVOFLOXACIN INJ 250 MG in PREMIX 1 EACH IV SCH (14:19)
[2017-03-01] MEDS: WARFARIN 4 MG TABLET PO SCH (17:32)
[2017-03-01] MEDS: ATORVASTATIN 40 MG TABLET PO SCH (18:46)
[2017-03-01] MEDS: LORazepam 1 MG TABLET PO SCH (18:46)
[2017-03-01] MEDS: METOPROLOL SUCCINATE XL 25 MG TABLET PO SCH (18:47)
[2017-03-01 22:58] LABS: Apearance,Urine CLEAR (Clear); Bilirubin,Urine Negative (Negative); Blood, Urine Small mg/dL (Negative); Glucose,Urine (UA) Negative (Negative); Ketones,Urine Negative (Negative); Mucus,Urine Occasional /LPF (Occasional); Nitrite,Urine Negative (Negative); Protein,Urine Negative; RBC,Urine 11 /HPF (0-4); Urine Color Yellow (Yellow); Urine Specific Gravity 1.014 (1.001-1.035); Urine Urobilinogen < 2.0 EU/DL (0.2-1.0); WBC,Urine 3 /HPF (0-6)
[2017-03-02] MEDS: CLINDAMYCIN INJ 300 MG in PREMIX 1 EACH IV SCH ×4 (04:30→21:38)
[2017-03-02 06:30] LABS: INR 1.4; PT Patient Result 14.7 SECS
[2017-03-02] MEDS: ALBUTEROL/IPRATROPIUM 3 ML NEB RESP TX SCH ×4 (07:04→19:04)
--- NOTE | 2017-03-02 07:50 | XRay Report ---
2 view chest. Indication: Pneumonia. Comparison: March 01, 2017. The heart is borderline enlarged. Calcific plaque is present within the aortic knob. Cardiac hardware is in satisfactory position. The pulmonary vasculature is normal. Mild atelectasis or scarring is seen at the left lung base. There is a small, 4 mm rounded density projecting in the left upper lung field, not seen on older exams. A coronary artery stent is visible. Degenerative changes are present within the spinal column. Impression: Mild atelectasis or scarring at the left lung base remains stable. Small nodular density in the left upper lung field, not seen on remote studies. This may represent a calcified granuloma, but its recent appearance raises the index of suspicion. A CT of the chest is recommended for further evaluation. PROCEDURE INTERPRETED AT [facility] DEPARTMENT OF RADIOLOGY Final Report Signed by: Dr. Andree Leavitt
[2017-03-02] MEDS: ASPIRIN CHEW 81 MG TABLET PO SCH (08:30)
[2017-03-02] MEDS: METOPROLOL SUCCINATE XL 50 MG TABLET PO SCH (08:30)
[2017-03-02] MEDS: PANTOPRAZOLE 40 MG TABLET PO SCH (08:30)
[2017-03-02] MEDS: amLODIPine 5 MG TABLET PO SCH (08:30)
[2017-03-02] MEDS: methylPREDNISolone SOD SUC 40 MG/1 ML VIAL IV SCH (08:31)
[2017-03-02] MEDS: ISOSORBIDE MONONITRATE 30 MG TABLET PO SCH (08:31)
[2017-03-02] MEDS: POTASSIUM CHLORIDE 10 MEQ TABLET PO SCH (08:31)
[2017-03-02] MEDS ORDERED: ENOXAPARIN 30 MG/0.3 ML SYRINGE SUBCUT ONE (10:09)
--- NOTE | 2017-03-02 11:00 | Pulmonology Progress Note ---
Pulmonary - PN: Subj Interval history: Mr. Tomas is a 76 year old /White male who was admitted 02/23/17 from [facility] [place] for acute RML pneumonia, hemoptysis, possible LLL pneumonia vs L pleural effusion, increased edema, CKD, paroxysmal afib, and outpatient tx failure. 02/24/17 he was seen today along with ÁNGELA Hobbs, the patient's and two sons were also in the room. Patient states that he continues to cough up sputum that is blood tinged but that he feels better this morning. His legs have gone down significantly in size since yesterday with elevation and compression hose. He has had further labs, imaging studies since admission these have been reviewed. Doppler venograms were negative for evidence of DVT. EKG was without acute changes for his baseline. CXR was repeated today which showed that this was more of a right lower lung infiltrate mostly posterior rather than right middle lung, also small amounts of fluid noted at both costophrenic angles along with a small infiltrate noted in the left lower lung. We discussed these findings with the patient and family and they verbalized understanding and that he would likely need fiberoptic bronchoscopy during this hospitalization to evaluate the cause of this hemoptysis further but we would wait until he is stable to do this. He had no complaints today. 02/25/17. The patient was seen today along with his . His breathing has improved. He continues to have some hemoptysis. He will need FOB at some point, but he is not ready from a medical standpoint yet. 02/26/17. The patient was seen today along with his and Adriana Mei RN. He is laying flat in bed and breathing comfortably. Upon questioning, he continues to have hemoptysis. His INR today is 2.5. In anticipation of proceeding with FOB on Wednesday, we will hold his Coumadin. On Wednesday we will give a one time dose of Lovenox. FOB was discussed with the patient and his and they agree to proceed. Pre-op orders have been placed in the EMR. His creatinine has increased to 1.6. His CXR shows no heart failure. so we will stop the Lasix. 03/01/2017. Earlier this morning the patient had a fiberoptic bronchoscopy. He had bibasal erosive friable bronchitis. I suspect this is the source of his bleeding although he had no active bleeding today. He tolerated procedure well and I have discussed the findings with his . See report for further detail. INR is down to 1.7. Will cover the patient another day with Lovenox and I have restarted his Coumadin at previous dose. I have asked him to be up and about this afternoon once his anesthesia wears off if he does well from a pulmonary standpoint we can consider discharge tomorrow. Lab is reviewed and looks good. Medicines have been reviewed no changes have been made. 03/02/2017. From a pulmonary standpoint this patient is doing very well. All of his bronchoscopy specimens are negative. Patient was unable to urinate last night. He required a catheter and he had 5 or 600 cc of residual urine. Catheter is just been pulled and hopefully he can urinate today he has had this problem following surgery in the past he says. Yesterday he had 50 mg of Benadryl IM and 25 mg of Demerol IM. Patient's going to be up and moving about today and hopefully he will urination will return. He said in the past he was given Flomax and he was said that he had an allergic reaction, but he thinks he just had a episode of atrial fib with happen to occur at the same time he had Flomax. I have not tried Flomax on him yet. He is followed by urology and he says usually he has no problems. In the meantime will continue his present medicines until the urinary tract problem improves and then we can discharge him. He said when he last had this he was sent home with a urinary catheter for 7 days. It was not happy about this treatment. Physical exam. Vital signs see below Psychiatric. Oriented 3 Neurologic. Cranial nerves are intact. Long track motor functions intact. Sensory exam was not done. Gait is normal. Neck. Symmetrical. No masses. No meningismus. Lymphatics. No submandibular cervical supraclavicular or epitrochlear adenopathy Chest. No airway congestion. Expiration is mildly prolonged. No wheezes Heart. No gallop. Abdomen. Nontender. Positive bowel sounds. Extremities. No clubbing. No edema. No evidence of deep venous thrombophlebitis. Skin. No cancerous infectious lesions of the face or hands. No other areas were evaluated. The remainder the exam is noncontributory. Plan. 1. Increased activity. 2. Check bronchoscopy specimens 3. Follow-up chest x-ray 4. If the patient does well he is for possible discharge on 03/02/2017 5. 03/02/2017. Bladder outlet obstruction. See my note above. Exam (Progress Note) - Constitutional Vitals: Period Temp Pulse Resp BP Sys/Olivarez Pulse Ox Last 24 Hr 97.4 F-97.9 F 60-86 16-18 103-136/57-92 97-100 Results - Labs CBC & BMP: 03/01/17 06:16 03/01/17 06:16
--- NOTE | 2017-03-02 11:45 | Pathology Report from [facility] ---
ACCESSION # : [id number] PATIENT NAME : Elgin Tomas ORDERING DR : CADEN YOUNG MD CLINICAL HX: Hemoptysis POST-OP DX: Same SPECIMEN INFO: Washing,Bronchial,PEPITO - 15 ml's greyish white, mucoid. CLASS: I CLASS COMMENTS: Benign respiratory epithelial cells, squamous cells, pulmonary macrophages.CELL BLOCK: Same CLASS LEGEND: CLASS 0 Material inadequate for diagnosis because of (see comment) CLASS I Absence of atypical or abnormal cells CLASS II Atypical Cytology but no evidence of malignancy CLASS III Cytology suggestive of but not conclusive for malignancy CLASS IV Cytology strongly suggestive of malignancy CLASS V Cytology conclusive for malignancy SERVICE DATE: 03/01/2017 REPORT DATE: 03/02/2017 PATHOLOGIST: Anjana Flood M.D. [facility]ITAL[facility]
[2017-03-02] MEDS: LEVOFLOXACIN INJ 250 MG in PREMIX 1 EACH IV SCH (14:07)
[2017-03-02] MEDS: WARFARIN 4 MG TABLET PO SCH (17:38)
[2017-03-02] MEDS: LORazepam 1 MG TABLET PO SCH (18:17)
[2017-03-02] MEDS: ATORVASTATIN 40 MG TABLET PO SCH (18:17)
[2017-03-02] MEDS: METOPROLOL SUCCINATE XL 25 MG TABLET PO SCH (20:02)
[2017-03-03] MEDS: CLINDAMYCIN INJ 300 MG in PREMIX 1 EACH IV SCH ×2 (03:20→09:05)
[2017-03-03] MEDS: ALBUTEROL/IPRATROPIUM 3 ML NEB RESP TX SCH (07:03)
[2017-03-03 08:22] VITALS: BP 110/61
--- NOTE | 2017-03-03 08:39 | Pulmonology Progress Note ---
Pulmonary - PN: Subj Interval history: Dirk Nur, ANP-BC, GNP-BC, acting as scribe for Dr. Sascha Carrillo Mr. Tomas is a 76 year old /White male who was admitted 02/23/17 from [facility] [place] for acute RML pneumonia, hemoptysis, possible LLL pneumonia vs L pleural effusion, increased edema, CKD, paroxysmal afib, and outpatient tx failure. 02/24/17 he was seen today along with ÁNGELA Hobbs, the patient's and two sons were also in the room. Patient states that he continues to cough up sputum that is blood tinged but that he feels better this morning. His legs have gone down significantly in size since yesterday with elevation and compression hose. He has had further labs, imaging studies since admission these have been reviewed. Doppler venograms were negative for evidence of DVT. EKG was without acute changes for his baseline. CXR was repeated today which showed that this was more of a right lower lung infiltrate mostly posterior rather than right middle lung, also small amounts of fluid noted at both costophrenic angles along with a small infiltrate noted in the left lower lung. We discussed these findings with the patient and family and they verbalized understanding and that he would likely need fiberoptic bronchoscopy during this hospitalization to evaluate the cause of this hemoptysis further but we would wait until he is stable to do this. He had no complaints today. 02/25/17. The patient was seen today along with his . His breathing has improved. He continues to have some hemoptysis. He will need FOB at some point, but he is not ready from a medical standpoint yet. 02/26/17. The patient was seen today along with his and Adriana Mei RN. He is laying flat in bed and breathing comfortably. Upon questioning, he continues to have hemoptysis. His INR today is 2.5. In anticipation of proceeding with FOB on Wednesday, we will hold his Coumadin. On Wednesday we will give a one time dose of Lovenox. FOB was discussed with the patient and his and they agree to proceed. Pre-op orders have been placed in the EMR. His creatinine has increased to 1.6. His CXR shows no heart failure. so we will stop the Lasix. 03/01/2017. Earlier this morning the patient had a fiberoptic bronchoscopy. He had bibasal erosive friable bronchitis. I suspect this is the source of his bleeding although he had no active bleeding today. He tolerated procedure well and I have discussed the findings with his . See report for further detail. INR is down to 1.7. Will cover the patient another day with Lovenox and I have restarted his Coumadin at previous dose. I have asked him to be up and about this afternoon once his anesthesia wears off if he does well from a pulmonary standpoint we can consider discharge tomorrow. Lab is reviewed and looks good. Medicines have been reviewed no changes have been made. 03/02/2017. From a pulmonary standpoint this patient is doing very well. All of his bronchoscopy specimens are negative. Patient was unable to urinate last night. He required a catheter and he had 5 or 600 cc of residual urine. Catheter is just been pulled and hopefully he can urinate today he has had this problem following surgery in the past he says. Yesterday he had 50 mg of Benadryl IM and 25 mg of Demerol IM. Patient's going to be up and moving about today and hopefully he will urination will return. He said in the past he was given Flomax and he was said that he had an allergic reaction, but he thinks he just had a episode of atrial fib with happen to occur at the same time he had Flomax. I have not tried Flomax on him yet. He is followed by urology and he says usually he has no problems. In the meantime will continue his present medicines until the urinary tract problem improves and then we can discharge him. He said when he last had this he was sent home with a urinary catheter for 7 days. He was not happy about this treatment. 03/03/17. The patient was seen today along with his and Adriana Mei RN. The patient has an appointment with his urologist in [place], [place], today. He was able to void last night with only 100mL of residual seen on bladder scan. He is stable and can be discharged home. Medications have been reviewed. Labs have been reviewed. No new labs were drawn today. Exam (Progress Note) - Constitutional Vitals: Period Temp Pulse Resp BP Sys/Olivarez Pulse Ox Last 24 Hr 96.8 F-97.8 F 80-94 16-20 95-136/59-92 94-100 Exam: Chest with slightly prolonged expiration, but no appreciable wheeze Heart no gallop Abd is nontender and nondistended; BS positive x 4 Ext with nothing to suggest acute DVT Psych oriented x 3 Neuro long tract motor function is intact Plan: The patient has now met maximum hospital benefit and will be discharge home. Please see the discharge note dated 03/03/17. Results - Labs CBC & BMP: 03/01/17 06:16 03/01/17 06:16 Specialty Discharge - Follow Up or Referrals Follow up with: Holly Montanez CFNP [Advanced Practice Nurse] - 03/17/17 10:30 am (2 weeks with INR, CXR, CBC, and BMP/Mg+ Be here 30mins for labs to be drawn. )
--- NOTE | 2017-03-03 08:42 | Discharge Summary ---
Hospital Course - Hospital Course Hospital Course: Dirk Nur, ANP-BC, GNP-BC, acting as scribe for Dr. Sascha Carrillo Mr. Tomas is a 76-year-old white male who was admitted 02/23/2017 [facility] with acute hemoptysis, right middle lung infiltrate compatible with pneumonia, and possible left lower lobe pneumonia versus left pleural effusion. He was admitted and started on IV antibiotics of Levaquin and Cleocin. He continued to complain of blood-streaked sputum, so on 03/01/2017 the patient underwent fiberoptic bronchoscopy. This showed retained secretions, right lower lung and left lower lung erosive probable bronchitis secondary to infection with associated hemoptysis, less than effective cough, and COPD with bronchitis and bronchospastic disease. Patient had been on chronic anticoagulation which probably exacerbated his hemoptysis. Cytology is class I. Bronchoscopy Gram stain showed no organisms and culture grew no organisms. There is no AFB or fungus seen on smear. AFB and fungal cultures are pending at the time of discharge. Sputum obtained at admission showed gram-positive cocci on Gram stain. Sputum culture grew no organisms. Therefore his bacterial pneumonia could have been secondary to gram-positive cocci and/or gram-negative rods. He was covered for both. At the time of discharge his hemoptysis has resolved. He has been afebrile and his lab indicates no evidence of infection. The day prior to discharge the patient developed acute urinary retention. This was felt most likely secondary to his recent medications used preoperatively for fiberoptic bronchoscopy. He was held an extra day because of this. The night prior to discharge the patient was able to void with only 100 cc of residual urine. The day of discharge the patient had a yearly appointment with his urologist in [place], [place]. Legionella was negative. Cold agglutinins were negative at 1:4. Blood cultures grew no organisms. Doppler venograms on 02/23/2017 showed no evidence of deep venous thrombophlebitis. Liver ultrasound done 02/24/2017 showed no definite gallbladder pathology. Bowel gas limited the evaluation of the right upper quadrant. There is a small right pleural effusion. Echocardiogram done 02/24/[address] Azul showed 3+ left atrial enlargement, probably 2+ right ventricular enlargement, borderline normal LV systolic function with an ejection fraction estimated at 50-55% without segmental wall motion abnormality, aortic sclerosis without stenosis, mitral annular calcification, 1+ mitral regurgitation, and 1-2+ tricuspid regurgitation with a pulmonary artery pressure estimated to be at 58 mmHg plus the right atrial pressure (mild to moderate pulmonary hypertension). Based on the noted pulmonary hypertension, the patient was started on Norvasc 5 mg daily. At discharge, white count is 4745.6% segs, 42.2% lymphs, 9.2% monos; H&H 12.0/ 35.9 with normal to increased indices and normal red blood cell distribution with; platelet count 145,000; INR 1.4; creatinine 1.30, BUN 31, sodium 145, potassium 3.9, magnesium 2.3; liver function tests at admission were minimally elevated with an alkaline phosphate 199, ALT 119, AST 82, total bilirubin 0.60; BNP at admission was 1063 and at the time of discharge had fallen to 184; B12 is 839, folate greater than 24.0, TSH and free T4 were normal at 1.260 and 1.17 respectively; urinalysis showed no evidence of infection. For more information regarding Mr. Tmoas's past medical history, surgical history, social history, family history, admit labs, admit x-ray and admit exam , please see the admission note dated 02/23/2017. Impression: #1 Acute RML infiltrate refractory to outpatient treatment and secondary to gram -positive cocci and/or gram-negative rods--- improved #2 Early acute LLL infiltrate vs. small left pleural effusion--- resolved #3 Hemoptysis secondary to #1 and/or #2 and exacerbated by chronic anticoagulation--- resolved #4 Peripheral edema--- resolved #5 Mild to moderate pulmonary hypertension seen on echocardiogram done 2016 #6 Anemia #7 [place] #8 Atrial fibrillation #9 History of B12 deficiency #10 Chronic kidney disease #11 History of congestive heart failure #12 See past history Plan: Aspirin 81 mg daily, vitamin C 1000 mg daily, probiotic 1 daily, Lipitor 80 mg at bedtime, Imdur 30 mg daily, vitamin B6 and melatonin 3 mg at bedtime, Ativan 1 mg at bedtime, Toprol-XL 50 mg every morning and 75 mg every evening, multivitamin daily, Kofi 1400 mg daily, Prilosec 20 mg daily, co-Q10 twice daily, Coumadin 5 mg daily, Norvasc 5 mg daily, potassium 10 mEq daily, Levaquin 500 mg daily for 5 days, Cleocin 300 mg 3 times daily for 5 days, and prednisone 10 mg daily for 14 days then 10 mg every other day for 10 doses. The patient has been scheduled to follow-up with Holly Montanez, nurse practitioner , in approximately 2 weeks. He can be seen sooner if needed. He will have an INR next week at [facility]. Specialty Discharge - Follow Up or Referrals Follow up with: Holly Montanez CFNP [Advanced Practice Nurse] - 03/17/17 10:30 am (2 weeks with INR, CXR, CBC, and BMP/Mg+ Be here 30mins for labs to be drawn. ) Discharge Plan - Discharge Data Disposition: Disch To Home/Self Care - Discharge Medications New Clindamycin Cap [Cleocin Cap] 300 mg PO Q8HR #15 capsule Levofloxacin Tab [Levaquin Tab] 500 mg PO DAILY #5 tablet Potassium Chloride Cap/Tab [K Dur] 10 meq PO DAILY #30 tablet amLODIPine [Norvasc] 5 mg PO DAILY #30 tablet predniSONE TAB [PredniSONE] 10 mg PO DIRECTED #24 tablet Continue Multivit-Min/FA/Lycopen/Lutein [Centrum Silver Men Tablet] 2 tablet PO DAILY [place]-3/Dha/Epa/Fish Oil [Fish Oil 1,360 mg Softgel] 1,400 mg PO DAILY Ubidecarenone/Vit E Acet [Co Q-10 100 mg Softgel] 1 capsule PO BID Warfarin [Coumadin] 4 mg PO DAILY Metoprolol Succinate Xl [Toprol Xl] 75 mg PO QPM Melatonin/Pyridoxine HCl (B6) [Melatonin 3 mg Tablet] 3 mg PO QPM LORazepam TAB [Ativan Tab] 1 mg PO QPM Bacillus Coagulans [Probiotic] 1 tablet PO DAILY Atorvastatin [Lipitor] 80 mg PO QPM Aspirin 81 mg PO DAILY Ascorbic Acid [Vitamin C] 1,000 mg PO DAILY Metoprolol Succinate Xl [Toprol Xl] 50 mg PO QAM Omeprazole [Prilosec] 20 mg PO DAILY PRN PRN Reason: Indigestion Isosorbide Mononitrate [Imdur] 30 mg PO DAILY - Follow Up or Referral Follow Up: Holly Montanez CFNP [Advanced Practice Nurse] - 05/10/17 10:30 am (2 weeks with INR, CXR, CBC, and BMP/Mg+ Be here 30mins for labs to be drawn. ) - Forms/Instructions Instructions: Atrial Fibrillation (GEN), Viral Pneumonia (GEN), Sleep Apnea Syndrome (GEN) Exam - Constitutional Vitals: Period Temp Pulse Resp BP Sys/Olivarez Pulse Ox Last 24 Hr 96.8 F-97.8 F 80-94 16-20 95-136/59-92 94-100 Discharge Results Procedures and tests throughout hospitalization: Pending Orders 03/01/17 08:25 AFB Culture/Smears Stat Bronchoalveolar Lavage C & GS Stat Fungal Culture w/ Prep Stat Labs on day of discharge: Preliminary micro results at discharge 03/01/17 08:25 Bronchoalveolar Lavage Culture - Preliminary Bronchial Gagan Lavage Normal Dana at 24 hours DS: Provider Date of admission: 02/23/17 14:13 Primary care physician: STEVE RIVERA Attending physician on admission: Sascha Carrillo MD Consults: 02/23/17 14:32 Consult to Pharmacy [CONS] Routine Reason for Pharmacy Consult: Adjust Meds Renal Funct Discharging clinician: LORNA Odonnell
[2017-03-03] MEDS: ISOSORBIDE MONONITRATE 30 MG TABLET PO SCH (09:05)
[2017-03-03] MEDS: methylPREDNISolone SOD SUC 40 MG/1 ML VIAL IV SCH (09:05)
[2017-03-03] MEDS: POTASSIUM CHLORIDE 10 MEQ TABLET PO SCH (09:05)
[2017-03-03] MEDS: amLODIPine 5 MG TABLET PO SCH (09:05)
[2017-03-03] MEDS: PANTOPRAZOLE 40 MG TABLET PO SCH (09:05)
[2017-03-03] MEDS: METOPROLOL SUCCINATE XL 50 MG TABLET PO SCH (09:05)
[2017-03-03] MEDS: ASPIRIN CHEW 81 MG TABLET PO SCH (09:05)
== END 2017-03-03 09:55 | disposition home or self-care (01) | DRG 166 ==
LOC: N.5E 14:13
PROVIDERS: ADMIT Internal Medicine Pulmonary Disease; ATTEND Internal Medicine Pulmonary Disease

== ENCOUNTER 2019-10-19 05:52 | Inpatient (IN) ==
[2019-10-19] MEDS ORDERED: PHENYLEPHRINE DRIP 20 MG/250 ML PREMIX IV ONE (06:21)
[2019-10-19] MEDS ORDERED: LIDOCAINE 1%/EPI INJ 20 ML VIAL ONE (06:33)
[2019-10-19] MEDS ORDERED: HEPARIN 5,000 UNIT/1 ML VIAL ONE (06:33)
[2019-10-19] MEDS ORDERED: BUPIVACAINE MPF 0.25% 30 ML VIAL ONE (06:33)
[2019-10-19 06:41] LABS: Hematocrit 23.5 VOL% (42.0-52.0); Hemoglobin 7.2 GM/DL (14.0-18.0)
[2019-10-19] MEDS ORDERED: SODIUM CHLORIDE 0.9% 250 ML IV SCH (07:00)
[2019-10-19] MEDS ORDERED: ALBUMIN 5% 12.5 GM/250 ML VIAL IV ONE (08:00)
[2019-10-19] MEDS ORDERED: TISSUE ADHESIVE 1 EACH APPLICATOR TOP ONE (08:03)
[2019-10-19] MEDS ORDERED: NOREPINEPHRINE 4 MG/4 ML VIAL IV ONE ×3 (08:20→08:35)
[2019-10-19] MEDS ORDERED: EPINEPHrine 1 MG/10 ML SYRINGE ONE (08:22)
[2019-10-19] MEDS ORDERED: EPINEPHrine 1 MG/ML VIAL ONE ×2 (08:23→09:19)
[2019-10-19] MEDS: NOREPINEPHRINE 8 MG in SODIUM CHLORIDE 0.9% 242 ML IV PRN (08:36)
[2019-10-19] MEDS ORDERED: DIGOXIN 0.5 MG/2 ML AMP IV ONE ×2 (09:12→10:12)
[2019-10-19] MEDS: PHENYLEPHRINE DRIP 40 MG/250 ML PREMIX IV PRN ×3 (09:15→22:58)
[2019-10-19] MEDS ORDERED: fentaNYL 100 MCG/2 ML VIAL ONE (09:17)
[2019-10-19] MEDS ORDERED: SEVOFLURANE 1 UNIT/15 MINUTE INH ONE (09:18)
[2019-10-19] MEDS ORDERED: SODIUM BICARBONATE 50 MEQ/50 ML VIAL IV ONE (09:19)
[2019-10-19] MEDS ORDERED: ESMOLOL 100 MG/10 ML VIAL IV ONE (09:19)
[2019-10-19] MEDS ORDERED: LIDOCAINE 2% 5 ML VIAL ONE (09:19)
[2019-10-19] MEDS ORDERED: NEOSTIGMINE 10 MG/10 ML VIAL ONE (09:20)
[2019-10-19] MEDS ORDERED: ETOMIDATE 40 MG/20 ML VIAL IV ONE (09:20)
[2019-10-19] MEDS ORDERED: ROCURONIUM 100 MG/10 ML VIAL IV ONE (09:20)
[2019-10-19] MEDS ORDERED: SODIUM CHLORIDE 0.9% 750 ML IV ONE (09:20)
[2019-10-19] MEDS ORDERED: GLYCOPYRROLATE 0.4 MG/2 ML VIAL ONE (09:20)
[2019-10-19 09:28] LABS: Bacteria,Urine Occasional /HPF (Few); RBC,Urine 12 /HPF (0-4); WBC,Urine 29749 /HPF (0-6)
[2019-10-19 09:29] LABS: Apearance,Urine Turbid (Clear); Bilirubin,Urine Negative (Negative); Glucose,Urine (UA) Negative (Negative); Ketones,Urine Negative (Negative); Nitrite,Urine Negative (Negative); Protein,Urine 100 MG/DL; Urine Color Yellow (Yellow); Urine Specific Gravity 1.015 (1.001-1.035)
[2019-10-19 09:30] LABS: Urine Urobilinogen 0.2 EU/DL (0.2-1.0)
[2019-10-19 09:31] LABS: Blood, Urine Moderate mg/dL (Negative)
[2019-10-19] MEDS ORDERED: SODIUM CHLORIDE 0.9% 1,000 ML IV PRN (09:37)
[2019-10-19] MEDS ORDERED: METOPROLOL TARTRATE 5 MG/5 ML VIAL IV ONE (10:41)
[2019-10-19 10:44] LABS: Basophils # 0.1 10*3/uL (0.0-0.2); Basophils % 0.4 % (0.0-0.8); Eosinophils % 0.1 % (0.00-10.9); Hematocrit 24.6 VOL% (42.0-52.0); Hemoglobin 7.7 GM/DL (14.0-18.0); Immature Granulocytes % 3.9 %; Immature Granulocytes Absolute 1.21 #; Lymphocytes # 0.9 10*3/uL (1.4-4.0); Lymphocytes % 2.8 % (21.2-54.2); Mean Corpuscular HGB Conc 31.3 GM/DL (32-36); Mean Corpuscular Volume 94.3 FL (87-102); Mean Platelet Volume 10.3 FL (9.6-12.0); NRBC # 0.03 10*3/uL; Neutrophils % 90.8 % (38.7-73.9); Platelet Count 158 T/CUMM (130-400); Red Blood Count 2.61 MC/CUMM (3.8-5.5); Red Cell Distribution Width 19.7 % (9.3-17.3); White Blood Count 31.2 T/CUMM (4-12)
[2019-10-19 11:00] LABS: Blood Urea Nitrogen 93 MG/DL (7-18); Calcium 8.4 MG/DL (8.5-10.1); Estimated Glom Filtration Rate 9 ML/MIN; Glucose 179 MG/DL (74-106)
[2019-10-19 11:05] LABS: Anisocytosis 1+; Band Neutrophils 24 % (0-10); Lymphocytes 6 % (20-55); Macrocytosis 1+; Platelet Estimate Normal; Segmented Neutrophils 70 % (50-85); Total Cells Counted 100
[2019-10-19 11:06] LABS: Poikilocytosis Slight; Polychromasia Slight
[2019-10-19 15:00] LABS: ABG Base Excess -1.3 MMOL/L (-2.5-2.5); ABG HCO3 23.3 MMOL/L (20-26); ABG PCO2 34.6 MM HG (35-48); ABG PH 7.423 (7.35-7.45); ABG TCO2 20.5 MMOL/L (23-27)
[2019-10-19] MEDS ORDERED: LEVOFLOXACIN INJ 750 MG in PREMIX 1 EACH IV ONE (17:30)
[2019-10-19 18:31] VITALS: BP 94/50
[2019-10-19] MEDS ORDERED: ZINC OXIDE PASTE 113 GM TUBE TOP SCH (21:00)
[2019-10-20] MEDS ORDERED: NOREPINEPHRINE 4 MG/4 ML VIAL IV ONE (00:04)
[2019-10-20] MEDS ORDERED: AMIODARONE INJ 150 MG in DEXTROSE 5% 100 ML IV ONE (00:22)
[2019-10-20] MEDS ORDERED: AMIODARONE 150 MG/3 ML VIAL ONE (00:23)
[2019-10-20] MEDS ORDERED: AMIODARONE 450 MG/9 ML VIAL IV ONE (00:23)
[2019-10-20] MEDS ORDERED: AMIODARONE INJ 450 MG in DEXTROSE 5% 241 ML IV SCH ×2 (00:30→06:30)
[2019-10-20] MEDS ORDERED: MORPHINE 4 MG/1 ML VIAL IV ONE (01:39)
[2019-10-20] MEDS: PHENYLEPHRINE DRIP 40 MG/250 ML PREMIX IV PRN ×2 (02:06→04:47)
[2019-10-20 04:39] LABS: ABG Base Excess -7.6 MMOL/L (-2.5-2.5); ABG HCO3 15.2 MMOL/L (20-26); ABG PCO2 23.3 MM HG (35-48); ABG PH 7.433 (7.35-7.45); ABG PO2 366.8 MM HG (80-95); ABG TCO2 15.9 MMOL/L (23-27)
[2019-10-20 04:44] LABS: Basophils # 0.1 10*3/uL (0.0-0.2); Basophils % 0.2 % (0.0-0.8); Hematocrit 29.4 VOL% (42.0-52.0); Hemoglobin 9.6 GM/DL (14.0-18.0); Immature Granulocytes % 1.4 %; Immature Granulocytes Absolute 0.28 #; Lymphocytes # 1.1 10*3/uL (1.4-4.0); Lymphocytes % 5.5 % (21.2-54.2); Mean Corpuscular HGB Conc 32.7 GM/DL (32-36); Mean Corpuscular Volume 89.1 FL (87-102); Mean Platelet Volume 11.1 FL (9.6-12.0); Monocytes % 3.3 % (1.7-12.7); NRBC # 0.03 10*3/uL; Neutrophils % 89.6 % (38.7-73.9); Platelet Count 148 T/CUMM (130-400); Red Cell Distribution Width 20.2 % (9.3-17.3); White Blood Count 20.5 T/CUMM (4-12)
[2019-10-20 05:03] LABS: Albumin 1.6 G/DL (3.4-5.0); Bilirubin,Total 0.7 MG/DL (0.2-1.0); Calcium 7.7 MG/DL (8.5-10.1); Osmolality,Calculated 302.8 MOS/KG (273-304); Total Protein 5.7 G/DL (6.4-8.3)
[2019-10-20 05:13] LABS: Anisocytosis 1+; Hypochromasia 1+; Microcytosis 1+; Ovalocytes Few; Platelet Estimate Adequate
[2019-10-20] MEDS ORDERED: CALCIUM CHLORIDE 1,000 MG/10 ML SYRINGE IV ONE ×2 (05:13→05:17)
[2019-10-20] MEDS: NOREPINEPHRINE 8 MG in SODIUM CHLORIDE 0.9% 242 ML IV PRN (05:15)
[2019-10-20] MEDS ORDERED: PHENYLEPHRINE INJ 160 MG in SODIUM CHLORIDE 0.9% 234 ML IV PRN (05:29)
[2019-10-21] MEDS ORDERED: LEVOFLOXACIN INJ 500 MG in PREMIX 1 EACH IV SCH (17:30)
== END 2019-10-20 05:59 | disposition expired | DRG 208 ==
LOC: SUATTDRO → N.OR 05:52 → N.SDSINP 06:14 → N.ICU 08:35
PROVIDERS: ADMIT Internal Medicine; ATTEND Internal Medicine